=== PATIENT | male | born 1980 | race Caucasian/White ===

== ENCOUNTER 2024-04-18 09:06 | Day surgery (SDC) | payer BC ==
[2024-04-12 14:15] VITALS: BMI 35.2
[2024-04-18] MEDS: IV FLUID CONTINUATION 1,000 ML IV ONE (09:21)
[2024-04-18] MEDS: LACTATED RINGERS 1,000 ML IV SCH (09:22)
[2024-04-18 09:31] VITALS: TEMP 97.9
[2024-04-18] MEDS ORDERED: PROPOFOL 10 MG/ML 20 ML VIAL IV ONE (10:41)
[2024-04-18] MEDS ORDERED: LIDOCAINE 2% (PF) 20 MG/ML 5 ML VIAL ONE (10:41)
--- NOTE | 2024-04-18 10:49 | P.PCN ---
Date of Procedure: 04/18/24 Procedure(s) Performed: BRIEF HISTORY: Patient is a 44-year-old, pleasant, white male scheduled for an upper endoscopy as above evaluation of longstanding of GERD and Huerta's esophagus.. His last EGD by Dr. Gee in [facility] was in 2020. PROCEDURE PERFORMED: Esophagogastroduodenoscopy with biopsy. PREOPERATIVE DIAGNOSIS: GERD/Huerta's esophagus. IV sedation per anesthesia. PROCEDURE: After informed consent was obtained, the patient was brought into the endoscopy unit. IV sedation was administered by Anesthesia under continuous monitoring. Initially the Olympus GIF-140 video endoscope was inserted into the mouth. Esophagus intubated without any difficulty. It was gradually advanced into the stomach and duodenum and carefully examined. The bulb and the second part of the duodenum appeared normal. The scope at this time was withdrawn to the stomach, adequately insufflated with air, and upon careful examination, mucosa of the antrum, had linear areas of erythema consistent with gastritis and biopsies were done from this area. Mucosa of the body, cardia and the fundus appeared normal. The scope was then withdrawn into the esophagus. The GE junction was located at 45 cm from the incisors. It appeared regular with no erosions or ulcerations seen. No evidence of Huerta's esophagus. Rest of the esophagus appeared normal and biopsies were done from the distal esophagus and the patient tolerated the procedure well. IMPRESSION: 1. No evidence of Huerta's esophagus. 2. Linear areas of erythema in the antrum consistent with mild antral gastritis. RECOMMENDATIONS: The findings of this examination were discussed with the patient as well as his family. He was advised to follow-up with the biopsy results. Continue with Protonix 40 mg daily and follow antireflux measures..
[2024-04-18 11:19] VITALS: BP 118/73; PULSE 63; RESP 20
== END 2024-04-18 11:39 ==
LOC: ORWHC2ENDO 09:06
PROVIDERS: ATTEND Internal Medicine Gastroenterology
DX: K29.50 Unspecified chronic gastritis without bleeding (principal); K21.00 Gastro-esophageal reflux disease with esophagitis, without bleeding; Z79.899 Other long term (current) drug therapy; Z88.0 Allergy status to penicillin
CPT/HCPCS: 88305; 43239; J2704; J2001